=== PATIENT | male | born 1995 | race Caucasian/White ===

== ENCOUNTER 2017-11-15 19:22 | Emergency (ER) | payer OTHER ==
[~2017-11-15] VITALS: Ht 177.8 cm; Wt 81.7 kg
[~2017-11-15 19:22] MED LIST: ACETAMINOPHEN-1 EAC1 PO; ROBAXIN 750 MG750 M1 PO
[2017-11-15] MEDS ORDERED: PENICILLIN VK500 MG PO (19:56)
[2017-11-15] MEDS ORDERED: NORCO 5-325 TA1 EAC1 PO (19:56)
[2017-11-15 20:35] VITALS: BP 133/92
== END 2017-11-15 20:36 | disposition home or self-care (01) ==
LOC: M.ERS 19:22
DX: K04.7 Periapical abscess without sinus (principal)

== ENCOUNTER 2017-11-20 17:02 | Emergency (ER) | payer OTHER ==
[~2017-11-20] VITALS: Ht 177.8 cm; Wt 81.7 kg
[~2017-11-20 17:02] MED LIST changes: +NORCO 5-325 TA1 EAC1 PO; +PENICILLIN VK500 MG PO
[2017-11-20] MEDS ORDERED: BACTRIM DS TAB1 EACH PO (17:56)
[2017-11-20] MEDS ORDERED: IBUPROFEN 800800 M1 PO (17:56)
[2017-11-20] MEDS ORDERED: NORCO 5-325 TA1 EACH PO (17:56)
[2017-11-20 18:11] VITALS: BP 123/76
== END 2017-11-20 18:12 | disposition home or self-care (01) ==
LOC: M.ERS 17:02
DX: L05.01 Pilonidal cyst with abscess (principal)

== ENCOUNTER 2018-01-02 19:46 | Emergency (ER) | payer OTHER ==
[~2018-01-02] VITALS: Ht 177.8 cm; Wt 83.9 kg
[~2018-01-02 19:46] MED LIST changes: +BACTRIM DS TAB1 EACH PO; +IBUPROFEN 800800 M1 PO; +NORCO 5-325 TA1 EACH PO
[2018-01-02] MEDS ORDERED: NAPROSYN500 MG PO (20:10)
[2018-01-02] MEDS ORDERED: BACTRIM DS TAB1 EACH PO (20:10)
[2018-01-02 20:18] VITALS: BP 152/64
== END 2018-01-02 20:20 | disposition home or self-care (01) ==
LOC: M.ERS 19:46
DX: L05.01 Pilonidal cyst with abscess (principal)

== ENCOUNTER 2018-03-11 01:56 | Emergency (ER) | payer OTHER ==
[~2018-03-11] VITALS: Ht 177.8 cm; Wt 81.7 kg
[~2018-03-11 01:56] MED LIST changes: +NAPROSYN500 MG PO
[2018-03-11] MEDS ORDERED: HYDROCODONE-AP1 EAC6 PO (02:35)
[2018-03-11 03:15] VITALS: BP 150/94
== END 2018-03-11 03:19 | disposition home or self-care (01) ==
LOC: M.ERS 01:56
DX: L05.01 Pilonidal cyst with abscess (principal)

== ENCOUNTER 2019-08-11 07:20 | Emergency (ER) | payer OTHER ==
[~2019-08-11] VITALS: Ht 180.3 cm; Wt 86.2 kg
[~2019-08-11 07:20] MED LIST changes: +HYDROCODONE-AP1 EAC6 PO
[2019-08-11 09:38] VITALS: BP 138/97
== END 2019-08-11 09:32 | disposition home or self-care (01) ==
LOC: M.ERS 07:20
DX: J02.0 Streptococcal pharyngitis (principal); F17.210 Nicotine dependence, cigarettes, uncomplicated; Z88.6 Allergy status to analgesic agent